=== PATIENT | male | born 1935 | race Caucasian/White ===

== ENCOUNTER 2020-08-19 12:45 | Inpatient (IN) ==
[2020-08-19] MEDS ORDERED: 0.9 % SODIUM CHLORIDE 1,000 ML IV ONE (12:55)
--- NOTE | 2020-08-19 12:59 | Emergency Department Note ---
HPI General Chief complaint: Blood Pressure Problem Stated complaint: low blood pressure Time Seen by Provider: 08/19/20 12:48 Source: patient Mode of arrival: wheelchair History of Present Illness HPI Narrative: 84-year-old male with recent diagnosis of right rib fractures presents with 10 days of cough, fever, and some lethargy. In addition, he is complaining of diaphoresis. His and daughter had a similar respiratory infection around the same time, but their symptoms have resolved. He was sent over from [facility] with reported blood pressure of 80/38 mmHg. He also carries a history of CHF. He is on carvedilol, spironolactone, and Lasix. He denies rapid weight gain. He had been sitting in chair for last 6 weeks for his rib fracture pain, he denies PND orthopnea. He does have chronic lower extremity edema, but he states this is about his baseline. He denies lightheadedness or dizziness. He does endorse shortness of breath. He finished his second Covid vaccine in June. Related Data Home Medications Medication Instructions Recorded Confirmed carvedilol 12.5 mg tablet 12.5 mg PO BID 07/15/20 08/19/20 losartan 100 mg tablet 100 mg PO QDAY 07/15/20 08/19/20 spironolactone 25 mg tablet 25 mg PO QDAY 07/15/20 08/19/20 acetaminophen 650 mg 650 mg PO QHS tab 07/19/20 08/19/20 tablet,extended release furosemide 20 mg tablet 20 mg PO QDAY 07/19/20 08/19/20 Previous Rx's Medication Instructions Recorded methocarbamol 750 mg PO Q8H #30 tab 07/15/20 tramadol 50 mg PO Q8H PRN #20 tab 07/15/20 Allergies Allergy/AdvReac Type Severity Reaction Status Date / Time No Known Drug Allergies Allergy Verified 08/19/20 12:35 Review of Systems ROS ROS Narrative: Narrative: All systems ED: reviewed and negative except as stated. [facility] Narrative Patient History Narrative: Narrative: Medical/Surgical/Family History All Active Problems (Updated 08/20/20 @ 07:47 by Priyanka Bojorquez PA-C) CAP (community acquired pneumonia) (Acute) Cough (Acute) History of CHF (congestive heart failure) (Acute) Hypertension (Acute) Multiple rib fractures (Acute) Fall (Acute) History of hypertension (Acute) Medical History Cough Fall History of hypertension Hypertension Surgical History History of back surgery History of hip surgery Rt. Family History Sister Ovarian cancer Mother High blood pressure Social History Smoking Status: Former smoker Alcohol Intake Frequency: 2+ drinks per day Substance Use: does not use Exam Narrative Narrative: General: AOx3, NAD, nontoxic appearing. Pleasant and conversant. HEENT: PERRLA, EOMI, normocephalic. Moist mucous membranes. Normal facies and normal dentition. Chest: Symmetric pain to palpation of the right rib cage Respiratory: Diminished breath sounds in the bilateral upper lobes, no respiratory distress. Unlabored breathing. Heart: Regular rate and rhythm, no murmurs/clicks/rubs. Abdomen: Non-tender, Non distended, normal bowel tones. No organomegaly. Extremities: Warm and well perfused. 1+ pitting edema bilaterally. No venous stasis. Neuro: No focal deficits. Cranial nerves II-XII normal. Skin: Diaphoretic, no rashes or lesions, no cyanosis. Psych: Normal mood and affect Heme/Lymph: No bruising Course Course Course Narrative: 84-year-old male is seen for cough, fever and confusion/lethargy. He was sent over from [facility] for evaluation. Reevaluation(s) Reevaluation #1: Chest x-ray, basic labs, lactate, blood cultures, UA Start IV fluids. Patient currently does not meet SIRS criteria with a normal blood pressure and normal heart rate. Also with normal respiratory rate, not hypoxic and afebrile Reevaluation #2: Chest x-ray shows right upper lobe pulmonary infiltrate consistent with pneumonia versus possible lung contusion. CBC with leukocytosis of 13,200. At this time we will treat him for community acquired pneumonia with IV ceftriaxone and azithromycin. Covid test pending. Lactic acid and BNP are pending. Anticipate admission for IV antibiotics. Reevaluation #3: Rapid Covid screen is negative BNP is mildly elevated Lactic acid is 1.7 Vital Signs Vital signs: Vital Signs Temperature 97.8 F 08/19/20 12:46 Pulse Rate 66 08/19/20 12:46 Respiratory Rate 16 08/19/20 12:46 Blood Pressure 113/51 08/19/20 12:46 Pulse Oximetry (%) 93 08/19/20 12:46 Temperature 98.6 F 08/20/20 07:44 Pulse Rate 67 08/20/20 07:44 Respiratory Rate 18 08/20/20 07:44 Blood Pressure 130/72 08/20/20 07:44 Pulse Oximetry (%) 94 08/20/20 07:44 MDM MDM Narrative Medical decision making narrative: Community acquired PNA PSI score is estimated as Class IV (minus the PaO2), which is indication for admission. I have signed this patient out to the hospitalist, Dr. Irving. Lab Data Result diagrams: 08/20/20 04:40 08/20/20 04:40 Labs: Lab Results 08/19/20 08/19/20 08/19/20 Range/Units 13:10 13:10 13:10 WBC 13.2 H (4.5-11.0) K/mcL RBC 3.24 L (4.50-5.90) M/mcL Hgb 10.5 L (13.5-16.5) g/dL Hct 31.5 L (41.0-55.0) % MCV 97.2 (80.0-100.0) fL MCH 32.4 (26.0-34.0) pg MCHC 33.3 (31.0-36.0) g/dL RDW 12.1 (11.5-14.5) % Plt Count 457 H (140-440) K/mcL MPV 9.1 (7.4-10.4) fL Seg Neutrophils % 81 H (38-78) % Lymphocytes % 10 L (15-49) % Monocytes % (Manual) 7 (1-12) % Eosinophils % (Manual) 2 (0-7) % Platelet Estimate Increased A (Normal) RBC Morphology Normal (Normal) VBG Lactic Acid 1.6 (0.5-2.0) mmol/L Sodium 135 (133-145) mmol/L Potassium 4.1 (3.3-5.1) mmol/L Chloride 102 (96-108) mmol/L Carbon Dioxide 22 (22-30) mmol/L Anion Gap 11.0 (8.0-16.0) BUN 24 H (8-23) mg/dL Creatinine 1.4 H (0.7-1.2) mg/dL GFR Calculation 46 Glucose 151 H (70-105) mg/dL Calcium 8.8 (8.6-10.4) mg/dL Total Bilirubin 0.5 (0.1-1.0) mg/dL AST 22 (<40) U/L ALT 31 (<40) U/L Alkaline Phosphatase 114 (39-117) U/L C-Reactive Protein (0.03-0.80) mg/dL NT-Pro-B Natriuret Pep 1176.0 H (<450.0) pg/mL Total Protein 6.8 (5.9-8.4) gm/dL Albumin 3.1 L (3.2-5.2) gm/dL Globulin 3.7 (2.2-3.7) gm/dL Albumin/Globulin Ratio 0.8 L (1.0-2.3) Procalcitonin (<0.10) ng/mL Urine Color Urine Appearance (Clear) Urine pH (5.0-9.0) Ur Specific [place] (1.000-1.035) Urine Protein (Negative) mg/dL Urine Glucose (UA) (Negative) mg/dL Urine Ketones (Negative) mg/dL Urine Occult Blood (Negative) mg/dL Urine Nitrate (Negative) Urine Bilirubin (Negative) mg/dL Urine Urobilinogen mg/dL Ur Leukocyte Esterase (Negative) /ug Urine RBC (0-3) /hpf Urine WBC (0-4) /hpf Ur Squamous Epith Cells (0-4) /hpf Urine Bacteria (0) /hpf Ur Culture Indicated? Ur Strep pneumoniae Ag (Negative) 08/19/20 08/19/20 08/19/20 Range/Units 13:10 13:10 16:40 WBC (4.5-11.0) K/mcL RBC (4.50-5.90) M/mcL Hgb (13.5-16.5) g/dL Hct (41.0-55.0) % MCV (80.0-100.0) fL MCH (26.0-34.0) pg MCHC (31.0-36.0) g/dL RDW (11.5-14.5) % Plt Count (140-440) K/mcL MPV (7.4-10.4) fL Seg Neutrophils % (38-78) % Lymphocytes % (15-49) % Monocytes % (Manual) (1-12) % Eosinophils % (Manual) (0-7) % Platelet Estimate (Normal) RBC Morphology (Normal) VBG Lactic Acid (0.5-2.0) mmol/L Sodium (133-145) mmol/L Potassium (3.3-5.1) mmol/L Chloride (96-108) mmol/L Carbon Dioxide (22-30) mmol/L Anion Gap (8.0-16.0) BUN (8-23) mg/dL Creatinine (0.7-1.2) mg/dL GFR Calculation Glucose (70-105) mg/dL Calcium (8.6-10.4) mg/dL Total Bilirubin (0.1-1.0) mg/dL AST (<40) U/L ALT (<40) U/L Alkaline Phosphatase (39-117) U/L C-Reactive Protein 18.30 H (0.03-0.80) mg/dL NT-Pro-B Natriuret Pep (<450.0) pg/mL Total Protein (5.9-8.4) gm/dL Albumin (3.2-5.2) gm/dL Globulin (2.2-3.7) gm/dL Albumin/Globulin Ratio (1.0-2.3) Procalcitonin 0.32 H (<0.10) ng/mL Urine Color Yellow Urine Appearance Clear (Clear) Urine pH 5.0 (5.0-9.0) Ur Specific [place] 1.010 (1.000-1.035) Urine Protein Negative (Negative) mg/dL Urine Glucose (UA) Negative (Negative) mg/dL Urine Ketones Negative (Negative) mg/dL Urine Occult Blood Negative (Negative) mg/dL Urine Nitrate Negative (Negative) Urine Bilirubin Negative (Negative) mg/dL Urine Urobilinogen 4.0 A mg/dL Ur Leukocyte Esterase Negative (Negative) /ug Urine RBC 1 (0-3) /hpf Urine WBC < 1 (0-4) /hpf Ur Squamous Epith Cells < 1 (0-4) /hpf Urine Bacteria None (0) /hpf Ur Culture Indicated? No Ur Strep pneumoniae Ag (Negative) 08/19/20 Range/Units 16:40 WBC (4.5-11.0) K/mcL RBC (4.50-5.90) M/mcL Hgb (13.5-16.5) g/dL Hct (41.0-55.0) % MCV (80.0-100.0) fL MCH (26.0-34.0) pg MCHC (31.0-36.0) g/dL RDW (11.5-14.5) % Plt Count (140-440) K/mcL MPV (7.4-10.4) fL Seg Neutrophils % (38-78) % Lymphocytes % (15-49) % Monocytes % (Manual) (1-12) % Eosinophils % (Manual) (0-7) % Platelet Estimate (Normal) RBC Morphology (Normal) VBG Lactic Acid (0.5-2.0) mmol/L Sodium (133-145) mmol/L Potassium (3.3-5.1) mmol/L Chloride (96-108) mmol/L Carbon Dioxide (22-30) mmol/L Anion Gap (8.0-16.0) BUN (8-23) mg/dL Creatinine (0.7-1.2) mg/dL GFR Calculation Glucose (70-105) mg/dL Calcium (8.6-10.4) mg/dL Total Bilirubin (0.1-1.0) mg/dL AST (<40) U/L ALT (<40) U/L Alkaline Phosphatase (39-117) U/L C-Reactive Protein (0.03-0.80) mg/dL NT-Pro-B Natriuret Pep (<450.0) pg/mL Total Protein (5.9-8.4) gm/dL Albumin (3.2-5.2) gm/dL Globulin (2.2-3.7) gm/dL Albumin/Globulin Ratio (1.0-2.3) Procalcitonin (<0.10) ng/mL Urine Color Urine Appearance (Clear) Urine pH (5.0-9.0) Ur Specific [place] (1.000-1.035) Urine Protein (Negative) mg/dL Urine Glucose (UA) (Negative) mg/dL Urine Ketones (Negative) mg/dL Urine Occult Blood (Negative) mg/dL Urine Nitrate (Negative) Urine Bilirubin (Negative) mg/dL Urine Urobilinogen mg/dL Ur Leukocyte Esterase (Negative) /ug Urine RBC (0-3) /hpf Urine WBC (0-4) /hpf Ur Squamous Epith Cells (0-4) /hpf Urine Bacteria (0) /hpf Ur Culture Indicated? Ur Strep pneumoniae Ag Negative (Negative) ED POC Tests ED POC Tests: [place] - SARS Antigen Negative Discharge Plan Patient/Caregiver Discharge Instructions Pt seen by [facility] APPLICATOR/PA only: Yes Clinical Impression: CAP (community acquired pneumonia) Patient Disposition: Xfer As Inpt ([facility]) Discharge Date/Time: 08/19/20 16:45
--- NOTE | 2020-08-19 13:21 | XRay Report ---
INDICATION: sepsis TECHNIQUE: AP portable semierect chest x-ray COMPARISON: Previous examination dated 07/15/2020 FINDINGS: Lungs:Patient has a history of COPD. There is focal right upper lobe infiltrate consistent with pneumonia. There is a fracture of the right 8th rib and pulmonary contusion is possible. This is a new finding since 07/15/2020. Left lung is negative. Heart, vascular:No significant cardiomegaly. Pulmonary vascularity is normal. No pulmonary edema or pulmonary congestion Mediastinum, yadiel:No mediastinal widening. No hilar mass Pleura:No detectable hemothorax or pneumothorax Skeletal:Fracture of the right 8th rib posterolaterally. This is new since 07/15/2020. No other detectable rib fractures. IMPRESSION: 1. Right 8th rib fracture 2. Focal consolidation the right upper lobe consistent with pneumonia. Pulmonary contusion is possible Interpreted and Authenticated by: Jeanmarie Du 08/19/20
[2020-08-19] MEDS ORDERED: cefTRIAXone 1 GM VIAL IV ONE (13:33)
[2020-08-19] MEDS ORDERED: AZITHROMYCIN 500 MG in DEXTROSE 5% IN WATER 250 ML IV ONE (13:33)
[2020-08-19 13:56] LABS: Hematocrit 31.5 % (41.0-55.0); Hemoglobin 10.5 g/dL (13.5-16.5); Mean Cell Volume 97.2 fL (80.0-100.0); Mean Corpuscular HGB Conc 33.3 g/dL (31.0-36.0); Mean Platelet Volume 9.1 fL (7.4-10.4); Platelet Count 457 K/mcL (140-440); RBC 3.24 M/mcL (4.50-5.90); Red Cell Distribution Width 12.1 % (11.5-14.5); WBC 13.2 K/mcL (4.5-11.0)
[2020-08-19 14:20] LABS: ALT/SGPT 31 U/L (<40); AST/SGOT 22 U/L (<40); Albumin 3.1 gm/dL (3.2-5.2); Albumin/Globulin Ratio 0.8 (1.0-2.3); Alkaline Phosphatase 114 U/L (39-117); Bilirubin,Total 0.5 mg/dL (0.1-1.0); Blood Urea Nitrogen 24 mg/dL (8-23); Calcium 8.8 mg/dL (8.6-10.4); Carbon Dioxide 22 mmol/L (22-30); Chloride 102 mmol/L (96-108); Globulin 3.7 gm/dL (2.2-3.7); Glomerular Filtration Rate 46; Glucose 151 mg/dL (70-105)
[2020-08-19 14:48] LABS: Eosinophils % (Manual) 2 % (0-7); Lymphocytes % 10 % (15-49); Monocytes % (Manual) 7 % (1-12); Platelet Estimate INCREASED (Normal); RBC Morphology NORMAL (Normal); Segmented Neutrophils % 81 % (38-78)
--- NOTE | 2020-08-19 15:52 | Internal Med History&Physical ---
HPI History of Present Illness Patient information: Note initiated : 08/19/20 at 3:46 pm Service Date, if different from initiated Date: [] Patient: Osmany Tong 84 y/o M admitted on for Low Blood Pressure. Chief Complaint: [] History of present illness: Mr. Tong is a 84 year old M Presented to minor care because he did not look well per his and was diaphoretic and in the minor care is found to have a blood pressure of systolic 80/38. Patient was sent over to ED. After IV fluids given minor care patient's blood pressures been good in our ER. He had a mild leukocytosis. BUN/creatinine mildly elevated. Chest x-ray with right upper lobe infiltrate. Reports cough productive of yellow sputum. He has been weak and fatigued. He has increased shortness of breath this all been going on for about the past week and a half. He has had some diarrhea none today. He has had chills. When he is well he has few drinks at night but has not had any alcohol for 2 weeks. Review of Systems: Pertinent positives as above. Denies headache//nausea/vomiting/chest or abdominal pain/. Remaining 10 point review of system reviewed negative PFSH PFSH All Active Problems (Updated 08/19/20 @ 12:47 by Asha Tompkins DO) Cough (Acute) History of CHF (congestive heart failure) (Acute) Hypertension (Acute) Multiple rib fractures (Acute) Fall (Acute) History of hypertension (Acute) Medical History (Updated 08/19/20 @ 12:47 by Asha Tompkins DO) Cough Fall History of hypertension Hypertension Surgical History History of back surgery History of hip surgery Rt. Family History Sister Ovarian cancer Mother High blood pressure Social History marital status: occupational status: retired smoking status: Former smoker alcohol intake frequency: 2+ drinks per day substance use type: does not use MEDS/ALLERGIES Home Medications and Allergies Home Medications Medication Instructions Recorded Confirmed Type carvedilol 12.5 mg tablet 12.5 mg PO BID 07/15/20 08/19/20 History losartan 100 mg tablet 100 mg PO QDAY 07/15/20 08/19/20 History methocarbamol 750 mg PO Q8H #30 tab 07/15/20 08/19/20 Rx spironolactone 25 mg tablet 25 mg PO QDAY 07/15/20 08/19/20 History tramadol 50 mg PO Q8H PRN #20 tab 07/15/20 08/19/20 Rx acetaminophen 650 mg 650 mg PO QHS tab 07/19/20 08/19/20 History tablet,extended release furosemide 20 mg tablet 20 mg PO QDAY 07/19/20 08/19/20 History Allergies Allergy/AdvReac Type Severity Reaction Status Date / Time No Known Drug Allergies Allergy Verified 08/19/20 12:35 EXAM Constitutional Vitals: Temp Pulse Resp BP Pulse Ox 97.8 F 59 L 16 107/59 95 08/19/20 12:46 08/19/20 15:01 08/19/20 12:46 08/19/20 15:01 08/19/20 15:01 Exam: General: Awake but appears quite fatigued, No acute Distress Eyes/N/T: EOMI, PERRL, dry MM Head/Neck: neck supple, normocephalic atraumatic CV: RRR, No murmurs, normal s1/s2 Pulm: Right upper lobe mild wheezing and bronchial breath sounds, left clear. No rales abd: soft, nontender, +BS x4 Ext: no clubbing/cyanosis, b/l LE 1+ edema chronic usually worse per pt Neuro: Alert, no focal deficits, moves all extremities, CN 2-12 grossly intact, symmetrical strength b/l upper/lower, sensations intact b/l upper/lower Skin: warm/dry DATA Data Completed and Pending Labs: Labs from last 24 hours 08/19/20 08/19/20 08/19/20 13:10 13:10 13:10 WBC RBC Hgb Hct MCV MCH MCHC RDW Plt Count MPV Seg Neutrophils % Lymphocytes % Monocytes % (Manual) Eosinophils % (Manual) Platelet Estimate RBC Morphology VBG Lactic Acid 1.6 Sodium Potassium Chloride Carbon Dioxide Anion Gap BUN Creatinine GFR Calculation Glucose Calcium Total Bilirubin AST ALT Alkaline Phosphatase C-Reactive Protein Pending NT-Pro-B Natriuret Pep Total Protein Albumin Globulin Albumin/Globulin Ratio Procalcitonin Pending 08/19/20 08/19/20 13:10 13:10 WBC 13.2 H RBC 3.24 L Hgb 10.5 L Hct 31.5 L MCV 97.2 MCH 32.4 MCHC 33.3 RDW 12.1 Plt Count 457 H MPV 9.1 Seg Neutrophils % 81 H Lymphocytes % 10 L Monocytes % (Manual) 7 Eosinophils % (Manual) 2 Platelet Estimate Increased A RBC Morphology Normal VBG Lactic Acid Sodium 135 Potassium 4.1 Chloride 102 Carbon Dioxide 22 Anion Gap 11.0 BUN 24 H Creatinine 1.4 H GFR Calculation 46 Glucose 151 H Calcium 8.8 Total Bilirubin 0.5 AST 22 ALT 31 Alkaline Phosphatase 114 C-Reactive Protein NT-Pro-B Natriuret Pep 1176.0 H Total Protein 6.8 Albumin 3.1 L Globulin 3.7 Albumin/Globulin Ratio 0.8 L Procalcitonin A/P Narrative A/P Narrative: A: *CAP: -PSI= 114 *Sepsis: 2/2 above -Hypotension resolved with IV fluids in ED *JOAN on CKD III: 2/2 volume depletion *Anemia, likely chronic: *HTN: On Coreg losartan Lasix and Aldactone *h/o fall with rib fracture 6 weeks ago: On tramadol *Generalized weakness/deconditionin/2 above * * P: -Rocephin/azithromycin, pending BC/UC -IS/Acapella, prn nebs -IVF -hold BB/ARB/Diuretics - -FARHAT's -PT/OT -ppx: Lovenox DNR Time Spent With Patient Time: Total time spent is greater than 50% in coordination of care (as documented) at patient's floor/unit and/or counseling patient:
[2020-08-19] MEDS ORDERED: POTASSIUM CHLORIDE 40 MEQ in DEXTROSE 5% IN WATER 500 ML IV PRN (16:57)
[2020-08-19] MEDS ORDERED: IPRATROPIUM/ALBUTEROL 3 ML AMPUL.NEB NEB PRN (16:57)
[2020-08-19] MEDS ORDERED: 0.9 % SODIUM CHLORIDE 500 ML IV ONE (16:57)
[2020-08-19] MEDS ORDERED: ONDANSETRON 4 MG/2 ML VIAL IV PRN (16:57)
[2020-08-19] MEDS ORDERED: MAGNESIUM SULFATE 2 GM/50 ML BAG IV PRN (16:57)
[2020-08-19] MEDS ORDERED: HYDROcodone/APAP 5/325MG TABLET PO PRN (16:57)
[2020-08-19] MEDS ORDERED: SENNOSIDES 1 TABLET PO PRN (16:57)
[2020-08-19] MEDS ORDERED: POLYETHYLENE GLYCOL 3350 17 GM PACKET PO PRN (16:57)
[2020-08-19] MEDS ORDERED: POTASSIUM CHLORIDE 20 MEQ TABLET PO PRN ×2 (16:57)
[2020-08-19 18:17] LABS: Appearance,Urine CLEAR (Clear); Bilirubin,Urine Negative (Negative); Color,Urine YELLOW; Culture Indicated,Urine No; Glucose,Urine (UA) Negative (Negative); Ketones,Urine Negative (Negative); Leukocyte Esterase,Urine Negative /ug (Negative); Nitrate,Urine Negative (Negative); Protein,Urine Negative (Negative); Urine Blood Negative (Negative); Urine RBC 1 /hpf (0-3); Urine Squamous Epithelial Cell < 1 /hpf (0-4); Urine WBC < 1 /hpf (0-4)
[2020-08-19] MEDS: DOCUSATE SODIUM 100 MG CAPSULE PO SCH (22:02)
[2020-08-19] MEDS: 0.9 % SODIUM CHLORIDE 10 ML SYRINGE IV SCH (22:03)
[2020-08-20] MEDS: ACETAMINOPHEN 325 MG TABLET PO PRN ×3 (00:02→20:21)
[2020-08-20] MEDS: 0.9 % SODIUM CHLORIDE 10 ML SYRINGE IV SCH ×3 (05:19→22:00)
[2020-08-20 06:47] LABS: Basophils # (Auto) 0.06 K/mcL (0.00-0.20); Basophils % (Auto) 0.5 % (0.0-2.0); Eosinophils # (Auto) 0.62 K/mcL (0.00-0.70); Eosinophils % (Auto) 5.6 % (0.0-7.0); Hematocrit 30.4 % (41.0-55.0); Hemoglobin 9.9 g/dL (13.5-16.5); Lymphocytes # (Auto) 1.05 K/mcL (1.50-4.80); Lymphocytes % (Auto) 9.5 % (15.0-49.0); Mean Cell Volume 98.4 fL (80.0-100.0); Mean Corpuscular HGB Conc 32.6 g/dL (31.0-36.0); Mean Platelet Volume 9.3 fL (7.4-10.4); Monocytes # (Auto) 0.92 K/mcL (0.10-0.90); Monocytes % (Auto) 8.3 % (1.0-12.0); Neutrophils % (Auto) 76.1 % (38.0-78.0); Platelet Count 440 K/mcL (140-440); RBC 3.09 M/mcL (4.50-5.90); Red Cell Distribution Width 12.3 % (11.5-14.5)
[2020-08-20 07:17] LABS: ALT/SGPT 24 U/L (<40); AST/SGOT 17 U/L (<40); Albumin 2.9 gm/dL (3.2-5.2); Albumin/Globulin Ratio 0.9 (1.0-2.3); Alkaline Phosphatase 94 U/L (39-117); Bilirubin,Direct 0.2 mg/dL (<0.3); Bilirubin,Total 0.4 mg/dL (0.1-1.0); Blood Urea Nitrogen 19 mg/dL (8-23); Calcium 8.3 mg/dL (8.6-10.4); Carbon Dioxide 23 mmol/L (22-30); Chloride 104 mmol/L (96-108); Globulin 3.2 gm/dL (2.2-3.7); Glomerular Filtration Rate 68; Glucose 98 mg/dL (70-105); Lactate Dehydrogenase 166 U/L (135-225); Phosphorous 3.1 mg/dL (2.5-4.5); Triglycerides 103 mg/dL (<150); Uric Acid 4.2 mg/dL (2.5-8.0)
--- NOTE | 2020-08-20 07:44 | Internal Med Progress Note ---
SUBJECTIVE Subjective Patient information: Note initiated : 08/20/20 at 7:41 am Service Date, if different from initiated Date: [] Patient: Osmany Tong 84 y/o M admitted on 08/19/20 for Low Blood Pressure. Chief Complaint: [] Interval history: History of present illness: Mr. Tong is a 84 year old M Presented to minor care because he did not look well per his and was diaphoretic and in the minor care is found to have a blood pressure of systolic 80/38. Patient was sent over to ED. After IV fluids given minor care patient's blood pressures been good in our ER. He had a mild leukocytosis. BUN/creatinine mildly elevated. Chest x-ray with right upper lobe infiltrate. Reports cough productive of yellow sputum. He has been weak and fatigued. He has increased shortness of breath this all been going on for about the past week and a half. He has had some diarrhea none today. He has had chills. When he is well he has few drinks at night but has not had any alcohol for 2 weeks. 08/20 Patient slept okay. No overnight event or new complaints. Has occasional cough. Review of Systems: denies headache/fever/chills/nausea/vomiting/chest or abdominal pain/diarrhea. Otherwise see above. Constitutional Vitals: Vital Signs Temp Pulse Resp BP Pulse Ox 98.3 F 69 18 125/72 92 08/20/20 04:00 08/20/20 04:00 08/20/20 04:00 08/20/20 04:00 08/20/20 04:00 Period Temp Pulse Resp BP Sys/Marroquin Pulse Ox Last 24 Hr 96.8 F-98.3 F 56-71 16-24 98-139/51-73 91-96 Intake and Output 08/19/20 08/20/20 08/20/20 21:59 05:59 13:59 Intake Total 1250 540 Output Total 650 Balance 1250 -110 Weight 100.471 kg Intake & Output: Intake & Output 08/19/20 08/20/20 08/20/20 21:59 05:59 13:59 Intake Total 1250 540 Output Total 650 Balance 1250 -110 Weight 100.471 kg Intake: IV 1250 Sodium Chloride 0.9% 1,000 ml @ 1000 Wide Open IV BOLUS ONE Rx#: [id number] Zithromax 500 mg In Dextrose 5% 250 in Water 250 ml @ 250 mls/hr IV ONCE ONE Rx#:[id number] Oral 540 Output: Void Amount 650 Other: Meal Dinner Percent of Meal Consumed 90 Feeding Ability Independent Urine Appearance Clear Cloudy Urine Color Dark Yellow Dark Yellow Stool Size Small Stool Color Brown Stool Consistency Formed # Voids 1 # Bowel Movements 1 Exam: General: Awake but appears quite fatigued, No acute Distress Eyes/N/T: EOMI, Head/Neck: neck supple, CV: RRR, No murmurs, Pulm: clearing, no wheezing today. left clear. No rales abd: soft, nontender, +BS x4 Ext: no clubbing/cyanosis, b/l LE 1+ edema chronic usually worse per pt Neuro: Alert, no focal deficits, moves all extremities, Skin: warm/dry OBJ DATA Labs CBC & Chem 7: 08/20/20 04:40 08/20/20 04:40 Labs: Abnormal Lab Results 08/20/20 08/20/20 08/19/20 04:40 04:40 16:40 WBC RBC 3.09 L Hgb 9.9 L Hct 30.4 L Plt Count Lymph % (Auto) 9.5 L Lymph # (Auto) 1.05 L [place] # (Auto) 0.92 H Seg Neutrophils % Lymphocytes % Absolute Neutrophils 8.39 H Platelet Estimate BUN Creatinine Glucose Calcium 8.3 L GGT 67 H C-Reactive Protein NT-Pro-B Natriuret Pep Albumin 2.9 L Albumin/Globulin Ratio 0.9 L Procalcitonin Urine Urobilinogen 4.0 A 08/19/20 08/19/20 08/19/20 13:10 13:10 13:10 WBC RBC Hgb Hct Plt Count Lymph % (Auto) Lymph # (Auto) [place] # (Auto) Seg Neutrophils % Lymphocytes % Absolute Neutrophils Platelet Estimate BUN 24 H Creatinine 1.4 H Glucose 151 H Calcium GGT C-Reactive Protein 18.30 H NT-Pro-B Natriuret Pep 1176.0 H Albumin 3.1 L Albumin/Globulin Ratio 0.8 L Procalcitonin 0.32 H Urine Urobilinogen 08/19/20 13:10 WBC 13.2 H RBC 3.24 L Hgb 10.5 L Hct 31.5 L Plt Count 457 H Lymph % (Auto) Lymph # (Auto) [place] # (Auto) Seg Neutrophils % 81 H Lymphocytes % 10 L Absolute Neutrophils Platelet Estimate Increased A BUN Creatinine Glucose Calcium GGT C-Reactive Protein NT-Pro-B Natriuret Pep Albumin Albumin/Globulin Ratio Procalcitonin Urine Urobilinogen Meds: Medications Acetaminophen (Acetaminophen 325 Mg Tablet) 650 mg PO Q6HP PRN PRN Reason: PAIN/FEVER > 101 Last Admin: 08/20/20 00:02 Dose: 650 mg Documented by: Hydrocodone Bitart/Acetaminophen (Hydrocodone/Apap 5/325mg Tablet) 1 tab PO Q4HP PRN PRN Reason: PAIN LEVEL 3-6 Albuterol/Ipratropium (Ipratropium/Albuterol 3 Ml Ampul.Neb) 3 ml NEB Q4HP PRN PRN Reason: Shortness Of Breath Docusate Sodium (Docusate Sodium 100 Mg Capsule) 100 mg PO BID [facility] Last Admin: 08/19/20 22:02 Dose: 100 mg Documented by: Enoxaparin Sodium (Enoxaparin 40 Mg/0.4 Ml Syringe) 40 mg SQ DAILY [facility] Ceftriaxone Sodium 2 gm/ (Dextrose) 50 mls @ 100 mls/hr IV Q24H [facility]; Protocol Azithromycin 500 mg/ Dextrose 250 mls @ 250 mls/hr IV Q24H [facility]; Protocol Stop: 08/22/20 10:59 Potassium Chloride 40 meq/ (Dextrose) 520 mls @ 130 mls/hr IV UD PRN PRN Reason: Potassium < 3 Magnesium Sulfate (Magnesium Sulfate) 2 gm in 50 mls @ 50 mls/hr IV UD PRN PRN Reason: Magnesium </= 1.6 Ondansetron HCl (Ondansetron 4 Mg/2 Ml Vial) 4 mg IV Q4HP PRN PRN Reason: Nausea And Vomiting Polyethylene Glycol (Polyethylene Glycol 3350 17 Gm Packet) 17 gm PO DAILYP PRN PRN Reason: Constipation Potassium Chloride (Potassium Chloride 20 Meq Tablet) 40 meq PO UD PRN PRN Reason: Potssium is 3-3.5 Potassium Chloride (Potassium Chloride 20 Meq Tablet) 40 meq PO UD PRN PRN Reason: Potassium < 3 Senna (Sennosides 1 Tablet) 2 tab PO DAILYP PRN PRN Reason: Constipation Sodium Chloride (0.9 % Sodium Chloride 10 Ml Syringe) 10 ml IV Q8 [facility] Last Admin: 08/20/20 05:19 Dose: Not Given Documented by: A/P Narrative A/P Narrative: A: *CAP(RUL): -PSI= 114 *Sepsis: 2/2 above -Hypotension resolved with IV fluids in ED -leukocytosis resolved *JOAN on CKD III: 2/2 volume depletion -resolved *Anemia, likely chronic: resolved *HTN: On Coreg losartan Lasix and Aldactone *h/o fall with rib fracture 6 weeks ago: On tramadol *Generalized weakness/deconditionin/2 above * P: -Rocephin/azithromycin, pending BC/UC -IS/Acapella, prn nebs -hold BB/ARB/Diuretics - -FARHAT's -PT/OT -ppx: Lovenox DNR Time Spent With Patient Time: Total time spent is greater than 50% in coordination of care (as documented) at patient's floor/unit and/or counseling patient: QUALITY VTE Deep Vein Thrombosis/Pulmonary Embolism Present on Admission: No
[2020-08-20] MEDS: cefTRIAXone 2 GM in DEXTROSE 5% IN WATER 50 ML IV SCH (08:32)
[2020-08-20] MEDS: ENOXAPARIN 40 MG/0.4 ML SYRINGE SQ SCH (08:49)
[2020-08-20] MEDS: DOCUSATE SODIUM 100 MG CAPSULE PO SCH ×2 (08:49→20:22)
[2020-08-20] MEDS: AZITHROMYCIN 500 MG in DEXTROSE 5% IN WATER 250 ML IV SCH (09:15)
--- NOTE | 2020-08-20 09:19 | Discharge Summary ---
Discharge Provider Provider Patient information: Note initiated : 08/20/20 at 9:18 am Service Date, if different from initiated Date: [] Patient: Osmany Tong 84 y/o M admitted on 08/19/20 for Low Blood Pressure. Chief Complaint: [] Date of admission: 08/19/20 16:45 Discharge date: 08/21/20 Primary care physician: Maura Infante DO Consults: 08/19/20 Consult to Physician [CONS] Stat Comment: Consulting Provider: Efrain Irving Reason For Exam: Physician to Consult Discharge Meds Discharge Medications Home Medications losartan 100 mg tablet 100 mg PO QDAY 07/15/20 [History Confirmed 08/19/20 Last Taken 08/19/20 09:00 100 MG.] methocarbamol 750 mg PO Q8H #30 tab 07/15/20 [Rx Confirmed 08/19/20 Last Taken 08/19/20 11:00 750 MG.] tramadol 50 mg PO Q8H PRN #20 tab 07/15/20 [Rx Confirmed 08/19/20 Last Taken 08/19/20 11:00 50 MG.] acetaminophen 650 mg tablet,extended release 650 mg PO QHS tab 07/19/20 [History Confirmed 08/19/20 Last Taken 08/19/20 11:00 650 MG.] furosemide 20 mg tablet 20 mg PO QDAY 07/19/20 [History Confirmed 08/19/20 Last Taken 08/19/20 09:00 20 MG.] amoxicillin 875 mg PO Q12H #6 tab 08/20/20 [Rx Last Taken Unknown] carvedilol 6.25 mg PO BID #1 tab 08/20/20 [Rx Last Taken Unknown] COURSE Hospital Course Hospital course: Interval history: History of present illness: Mr. Tong is a 84 year old M Presented to minor care because he did not look well per his and was diaphoretic and in the minor care is found to have a blood pressure of systolic 80/38. Patient was sent over to ED. After IV fluids given minor care patient's blood pressures been good in our ER. He had a mild leukocytosis. BUN/creatinine mildly elevated. Chest x-ray with right upper lobe infiltrate. Reports cough productive of yellow sputum. He has been weak and fatigued. He has increased shortness of breath this all been going on for about the past week and a half. He has had some diarrhea none today. He has had chills. When he is well he has few drinks at night but has not had any alcohol for 2 weeks. 08/20 Patient slept okay. No overnight event or new complaints. Has occasional cough. 08/21 Doing well. No new complaints. *Decreased Coreg for low blood pressure, and stopped Aldactone, continue Lasix. *Patient asked to monitor blood pressure twice daily and bring log to PCP A: *CAP(RUL): *Sepsis: 2/2 above *JOAN on CKD III: 2/2 volume depletion *Anemia, likely chronic: resolved *HTN: On Coreg losartan Lasix and Aldactone *h/o fall with rib fracture 6 weeks ago: On tramadol *Generalized weakness/deconditionin/2 above * Discharge diagnosis: Pneumonia sepsis acute kidney injury Secondary discharge diagnosis: Chronic kidney injury anemia hypertension generalized weakness deconditioning Time Spent with Patient Time attestation: Total time spent providing and/or coordinating discharge services: Time spent: Greater than 30 minutes EXAM Constitutional Vitals: Temp Pulse Resp BP Pulse Ox 98.6 F 67 18 130/72 94 08/20/20 07:44 08/20/20 07:44 08/20/20 07:44 08/20/20 07:44 08/20/20 07:44 Discharge Data Data Completed and Pending Labs on day of discharge: Labs from last 24 hours 08/20/20 08/20/20 08/19/20 04:40 04:40 16:40 WBC 11.0 RBC 3.09 L Hgb 9.9 L Hct 30.4 L MCV 98.4 MCH 32.0 MCHC 32.6 RDW 12.3 Plt Count 440 MPV 9.3 Neut % (Auto) 76.1 Lymph % (Auto) 9.5 L [place] % (Auto) 8.3 Eos % (Auto) 5.6 Baso % (Auto) 0.5 Lymph # (Auto) 1.05 L [place] # (Auto) 0.92 H Eos # (Auto) 0.62 Baso # (Auto) 0.06 Seg Neutrophils % Lymphocytes % Monocytes % (Manual) Eosinophils % (Manual) Absolute Neutrophils 8.39 H Platelet Estimate RBC Morphology VBG Lactic Acid Sodium 138 Potassium 4.5 Chloride 104 Carbon Dioxide 23 Anion Gap 11.0 BUN 19 Creatinine 1.0 GFR Calculation 68 Glucose 98 Uric Acid 4.2 Calcium 8.3 L Phosphorus 3.1 Magnesium 2.3 Total Bilirubin 0.4 Direct Bilirubin 0.2 GGT 67 H AST 17 ALT 24 Alkaline Phosphatase 94 Lactate Dehydrogenase 166 C-Reactive Protein NT-Pro-B Natriuret Pep Total Protein 6.1 Albumin 2.9 L Globulin 3.2 Albumin/Globulin Ratio 0.9 L Triglycerides 103 Procalcitonin Urine Color Urine Appearance Urine pH Ur Specific [place] Urine Protein Urine Glucose (UA) Urine Ketones Urine Occult Blood Urine Nitrate Urine Bilirubin Urine Urobilinogen Ur Leukocyte Esterase Urine RBC Urine WBC Ur Squamous Epith Cells Urine Bacteria Ur Culture Indicated? Ur Strep pneumoniae Ag Negative 08/19/20 08/19/20 08/19/20 16:40 13:10 13:10 WBC RBC Hgb Hct MCV MCH MCHC RDW Plt Count MPV Neut % (Auto) Lymph % (Auto) [place] % (Auto) Eos % (Auto) Baso % (Auto) Lymph # (Auto) [place] # (Auto) Eos # (Auto) Baso # (Auto) Seg Neutrophils % Lymphocytes % Monocytes % (Manual) Eosinophils % (Manual) Absolute Neutrophils Platelet Estimate RBC Morphology VBG Lactic Acid Sodium Potassium Chloride Carbon Dioxide Anion Gap BUN Creatinine GFR Calculation Glucose Uric Acid Calcium Phosphorus Magnesium Total Bilirubin Direct Bilirubin GGT AST ALT Alkaline Phosphatase Lactate Dehydrogenase C-Reactive Protein 18.30 H NT-Pro-B Natriuret Pep Total Protein Albumin Globulin Albumin/Globulin Ratio Triglycerides Procalcitonin 0.32 H Urine Color Yellow Urine Appearance Clear Urine pH 5.0 Ur Specific [place] 1.010 Urine Protein Negative Urine Glucose (UA) Negative Urine Ketones Negative Urine Occult Blood Negative Urine Nitrate Negative Urine Bilirubin Negative Urine Urobilinogen 4.0 A Ur Leukocyte Esterase Negative Urine RBC 1 Urine WBC < 1 Ur Squamous Epith Cells < 1 Urine Bacteria None Ur Culture Indicated? No Ur Strep pneumoniae Ag 08/19/20 08/19/20 08/19/20 13:10 13:10 13:10 WBC 13.2 H RBC 3.24 L Hgb 10.5 L Hct 31.5 L MCV 97.2 MCH 32.4 MCHC 33.3 RDW 12.1 Plt Count 457 H MPV 9.1 Neut % (Auto) Lymph % (Auto) [place] % (Auto) Eos % (Auto) Baso % (Auto) Lymph # (Auto) [place] # (Auto) Eos # (Auto) Baso # (Auto) Seg Neutrophils % 81 H Lymphocytes % 10 L Monocytes % (Manual) 7 Eosinophils % (Manual) 2 Absolute Neutrophils Platelet Estimate Increased A RBC Morphology Normal VBG Lactic Acid 1.6 Sodium 135 Potassium 4.1 Chloride 102 Carbon Dioxide 22 Anion Gap 11.0 BUN 24 H Creatinine 1.4 H GFR Calculation 46 Glucose 151 H Uric Acid Calcium 8.8 Phosphorus Magnesium Total Bilirubin 0.5 Direct Bilirubin GGT AST 22 ALT 31 Alkaline Phosphatase 114 Lactate Dehydrogenase C-Reactive Protein NT-Pro-B Natriuret Pep 1176.0 H Total Protein 6.8 Albumin 3.1 L Globulin 3.7 Albumin/Globulin Ratio 0.8 L Triglycerides Procalcitonin Urine Color Urine Appearance Urine pH Ur Specific [place] Urine Protein Urine Glucose (UA) Urine Ketones Urine Occult Blood Urine Nitrate Urine Bilirubin Urine Urobilinogen Ur Leukocyte Esterase Urine RBC Urine WBC Ur Squamous Epith Cells Urine Bacteria Ur Culture Indicated? Ur Strep pneumoniae Ag Discharge Plan Patient/Caregiver Discharge Instructions Activity: increase activity as tolerated Diet: Regular Diet Activity Restrictions/Additional Instructions: Monitor blood pressure twice daily and bring log to PCP Prescriptions: New amoxicillin 875 mg tablet 875 mg PO Q12H Qty: 6 RF: 0 Continued furosemide 20 mg tablet 20 mg PO QDAY RF: 0 acetaminophen [Tylenol Arthritis Pain] 650 mg tablet extended release 650 mg PO QHS RF: 0 losartan 100 mg tablet 100 mg PO QDAY RF: 0 tramadol 50 mg tablet 50 mg PO Q8H PRN (Reason: pain) Qty: 20 RF: 0 methocarbamol 750 mg tablet 750 mg PO Q8H Qty: 30 RF: 0 Changed carvedilol 12.5 mg tablet 6.25 mg PO BID Qty: 1 RF: 0 Discontinued spironolactone 25 mg tablet 25 mg PO QDAY RF: 0 Follow Up Plan Follow up with: Maura Infante DO [Primary Care Provider] - Patient Disposition: Home, Self-Care Prognosis: Fair Overall status at discharge: patient is progressing back to baseline Discharge Orders: Discharge Order (Routine); Ordered 08/21/20 Ordered By: Efrain Irving [facility] Deep Vein Thrombosis/Pulmonary Embolism Present on Admission: No
[2020-08-21] MEDS: 0.9 % SODIUM CHLORIDE 10 ML SYRINGE IV SCH (06:24)
[2020-08-21] MEDS: DOCUSATE SODIUM 100 MG CAPSULE PO SCH (08:52)
[2020-08-21] MEDS: cefTRIAXone 2 GM in DEXTROSE 5% IN WATER 50 ML IV SCH (08:52)
[2020-08-21] MEDS: ENOXAPARIN 40 MG/0.4 ML SYRINGE SQ SCH (08:52)
[2020-08-21] MEDS: AZITHROMYCIN 500 MG in DEXTROSE 5% IN WATER 250 ML IV SCH (09:43)
== END 2020-08-21 12:00 | disposition home or self-care (01) | DRG 871 ==
LOC: ED 12:45 → MEDSUR 16:45
PROVIDERS: ADMIT Internal Medicine; ATTEND Internal Medicine

== ENCOUNTER 2024-11-27 10:17 | Inpatient (IN) ==
[2024-11-27] MEDS ORDERED: IOPAMIDOL 100 ML BOTTLE IV ONE (10:18)
[2024-11-27 11:32] LABS: Basophils # (Auto) 0.02 K/mcL (0.00-0.30); Basophils % (Auto) 0.2 % (0.0-2.0); Eosinophils # (Auto) 0.01 K/mcL (0.00-0.70); Eosinophils % (Auto) 0.1 % (0.0-7.0); Hematocrit 38.6 % (40.1-51.0); Hemoglobin 13.1 g/dL (13.7-17.5); Lymphocytes # (Auto) 0.70 K/mcL (1.50-4.80); Lymphocytes % (Auto) 7.5 % (15.5-49.0); Mean Corpuscular HGB Conc 33.9 g/dL (31.0-36.0); Monocytes # (Auto) 0.84 K/mcL (0.10-0.90); Monocytes % (Auto) 9.0 % (1.0-12.0); Neutrophils % (Auto) 82.8 % (38.0-78.0); Platelet Count 208 K/mcL (140-440); RBC 3.94 M/mcL (4.63-6.08); WBC 9.3 K/mcL (4.5-11.0)
[2024-11-27] MEDS: ONDANSETRON 4 MG/2 ML VIAL IV ONE (11:36)
[2024-11-27 11:54] LABS: ALT/SGPT 17 U/L (<40); AST/SGOT 17 U/L (<40); Albumin 3.7 gm/dL (3.2-5.2); Albumin/Globulin Ratio 1.2 (1.0-2.3); Alkaline Phosphatase 63 U/L (39-117); Anion Gap 14.0 (8.0-16.0); Bilirubin,Total 0.7 mg/dL (0.1-1.0); Blood Urea Nitrogen 18 mg/dL (8-23); Calcium 9.2 mg/dL (8.6-10.4); Carbon Dioxide 23 mmol/L (22-30); Chloride 101 mmol/L (96-108); Globulin 3.0 gm/dL (2.2-3.7); Glucose 147 mg/dL (70-105); Potassium 3.5 mmol/L (3.3-5.1); Sodium 138 mmol/L (133-145)
[2024-11-27] MEDS: ACETAMINOPHEN 1,000 MG/100 ML BAG IV ONE (12:52)
[2024-11-27] MEDS: AZITHROMYCIN 500 MG in DEXTROSE 5% IN WATER 250 ML IV ONE (13:20)
[2024-11-27] MEDS: cefTRIAXone 1 GM VIAL IV ONE (13:20)
[2024-11-27 14:22] LABS: Bilirubin,Urine Negative (Negative); Color,Urine Yellow; Glucose,Urine (UA) Negative (Negative); Ketones,Urine 40 mg/dL (Negative); Leukocyte Esterase,Urine Negative /uL (Negative); PH,Urine 7.0 (5.0-9.0); Protein,Urine >=300 mg/dL (Negative); Specific Gravity,Urine 1.020 (1.000-1.035); Urobilinogen,Urine Normal
[2024-11-27] MEDS: FUROSEMIDE 40 MG/4 ML VIAL IV ONE (17:48)
[2024-11-27] MEDS: ACETAMINOPHEN 325 MG TABLET PO PRN (17:48)
[2024-11-27 20:21] LABS: Creatinine, Spot Urine 135.0 mg/dL (39.0-259.0); Pro:Crea Ratio 1.34 (<0.20); Protein, Spot Urine 181.0 mg/dL
[2024-11-27] MEDS: SENNOSIDES 1 TABLET PO SCH (21:31)
[2024-11-27] MEDS: 0.9 % SODIUM CHLORIDE 10 ML SYRINGE IV SCH (21:45)
[2024-11-27] MEDS: ONDANSETRON 4 MG/2 ML VIAL IV PRN (23:46)
[2024-11-28] MEDS ORDERED: LABETALOL HCL 20 MG/4 ML VIAL IV PRN (00:06)
[2024-11-28 06:34] LABS: ALT/SGPT 17 U/L (<40); AST/SGOT 18 U/L (<40); Albumin 3.4 gm/dL (3.2-5.2); Albumin/Globulin Ratio 1.2 (1.0-2.3); Alkaline Phosphatase 57 U/L (39-117); Anion Gap 13.0 (8.0-16.0); Bilirubin,Direct 0.2 mg/dL (<0.3); Bilirubin,Total 0.4 mg/dL (0.1-1.0); Blood Urea Nitrogen 21 mg/dL (8-23); Calcium 8.8 mg/dL (8.6-10.4); Carbon Dioxide 23 mmol/L (22-30); Chloride 98 mmol/L (96-108); Globulin 2.8 gm/dL (2.2-3.7); Glucose 150 mg/dL (70-105); Phosphorous 3.0 mg/dL (2.5-4.5); Potassium 3.1 mmol/L (3.3-5.1); Sodium 134 mmol/L (133-145); Triglycerides 115 mg/dL (<150); Uric Acid 6.8 mg/dL (2.5-8.0)
[2024-11-28 06:45] LABS: Basophils # (Auto) 0.02 K/mcL (0.00-0.30); Basophils % (Auto) 0.2 % (0.0-2.0); Eosinophils # (Auto) 0 K/mcL (0.00-0.70); Eosinophils % (Auto) 0 % (0.0-7.0); Hematocrit 36.9 % (40.1-51.0); Hemoglobin 12.6 g/dL (13.7-17.5); Lymphocytes # (Auto) 0.63 K/mcL (1.50-4.80); Lymphocytes % (Auto) 7.1 % (15.5-49.0); Mean Corpuscular HGB Conc 34.1 g/dL (31.0-36.0); Monocytes # (Auto) 0.82 K/mcL (0.10-0.90); Monocytes % (Auto) 9.2 % (1.0-12.0); Neutrophils % (Auto) 83.3 % (38.0-78.0); Platelet Count 209 K/mcL (140-440); RBC 3.76 M/mcL (4.63-6.08); WBC 8.9 K/mcL (4.5-11.0)
[2024-11-28] MEDS: ENOXAPARIN 40 MG/0.4 ML SYRINGE SQ SCH (08:15)
[2024-11-28] MEDS: cefTRIAXone 1 GM VIAL IV SCH (09:25)
[2024-11-28] MEDS: AZITHROMYCIN 500 MG in DEXTROSE 5% IN WATER 250 ML IV SCH (10:00)
[2024-11-28] MEDS: POTASSIUM CHLORIDE 20 MEQ TABLET PO ONE (10:00)
[2024-11-28] MEDS: CARVEDILOL 12.5 MG TABLET PO SCH (16:32)
[2024-11-28] MEDS: FUROSEMIDE 20 MG TABLET PO SCH (21:11)
[2024-11-29 06:28] LABS: Basophils # (Auto) 0.04 K/mcL (0.00-0.30); Basophils % (Auto) 0.6 % (0.0-2.0); Eosinophils # (Auto) 0.13 K/mcL (0.00-0.70); Eosinophils % (Auto) 1.8 % (0.0-7.0); Hematocrit 36.5 % (40.1-51.0); Hemoglobin 12.1 g/dL (13.7-17.5); Lymphocytes # (Auto) 0.91 K/mcL (1.50-4.80); Lymphocytes % (Auto) 12.5 % (15.5-49.0); Mean Corpuscular HGB Conc 33.2 g/dL (31.0-36.0); Monocytes # (Auto) 0.98 K/mcL (0.10-0.90); Monocytes % (Auto) 13.5 % (1.0-12.0); Neutrophils % (Auto) 71.3 % (38.0-78.0); Platelet Count 215 K/mcL (140-440); RBC 3.70 M/mcL (4.63-6.08); WBC 7.3 K/mcL (4.5-11.0)
[2024-11-29 07:08] LABS: ALT/SGPT 20 U/L (<40); AST/SGOT 24 U/L (<40); Albumin 3.1 gm/dL (3.2-5.2); Albumin/Globulin Ratio 1.0 (1.0-2.3); Alkaline Phosphatase 49 U/L (39-117); Anion Gap 10.0 (8.0-16.0); Bilirubin,Direct < 0.2 mg/dL (0-0.3); Bilirubin,Total 0.3 mg/dL (0.1-1.0); Blood Urea Nitrogen 30 mg/dL (8-23); Calcium 8.6 mg/dL (8.6-10.4); Carbon Dioxide 25 mmol/L (22-30); Chloride 101 mmol/L (96-108); Globulin 3.0 gm/dL (2.2-3.7); Glucose 117 mg/dL (70-105); Phosphorous 3.2 mg/dL (2.5-4.5); Potassium 3.6 mmol/L (3.3-5.1); Sodium 136 mmol/L (133-145); Triglycerides 150 mg/dL (<150); Uric Acid 7.4 mg/dL (2.5-8.0)
[2024-11-29] MEDS: POTASSIUM CHLORIDE 20 MEQ TABLET PO SCH (08:13)
[2024-11-30 06:10] LABS: Basophils # (Auto) 0.03 K/mcL (0.00-0.30); Basophils % (Auto) 0.4 % (0.0-2.0); Eosinophils # (Auto) 0.25 K/mcL (0.00-0.70); Eosinophils % (Auto) 3.7 % (0.0-7.0); Hematocrit 36.4 % (40.1-51.0); Hemoglobin 12.4 g/dL (13.7-17.5); Lymphocytes # (Auto) 1.05 K/mcL (1.50-4.80); Lymphocytes % (Auto) 15.4 % (15.5-49.0); Mean Corpuscular HGB Conc 34.1 g/dL (31.0-36.0); Monocytes # (Auto) 0.94 K/mcL (0.10-0.90); Monocytes % (Auto) 13.8 % (1.0-12.0); Neutrophils % (Auto) 66.4 % (38.0-78.0); Platelet Count 286 K/mcL (140-440); RBC 3.74 M/mcL (4.63-6.08); WBC 6.8 K/mcL (4.5-11.0)
[2024-11-30 06:22] LABS: ALT/SGPT 58 U/L (<40); AST/SGOT 53 U/L (<40); Albumin 3.2 gm/dL (3.2-5.2); Albumin/Globulin Ratio 1.1 (1.0-2.3); Alkaline Phosphatase 59 U/L (39-117); Anion Gap 12.0 (8.0-16.0); Bilirubin,Direct < 0.2 mg/dL (0-0.3); Bilirubin,Total 0.3 mg/dL (0.1-1.0); Blood Urea Nitrogen 30 mg/dL (8-23); Calcium 9.0 mg/dL (8.6-10.4); Carbon Dioxide 22 mmol/L (22-30); Chloride 101 mmol/L (96-108); Globulin 2.8 gm/dL (2.2-3.7); Glucose 119 mg/dL (70-105); Phosphorous 3.2 mg/dL (2.5-4.5); Potassium 3.7 mmol/L (3.3-5.1); Sodium 135 mmol/L (133-145); Triglycerides 173 mg/dL (<150); Uric Acid 7.3 mg/dL (2.5-8.0)
[2024-12-01 10:12] LABS: ALT/SGPT 57 U/L (<40); AST/SGOT 35 U/L (<40); Albumin 3.3 gm/dL (3.2-5.2); Albumin/Globulin Ratio 1.0 (1.0-2.3); Alkaline Phosphatase 61 U/L (39-117); Anion Gap 12.0 (8.0-16.0); Bilirubin,Direct < 0.2 mg/dL (0-0.3); Bilirubin,Total 0.4 mg/dL (0.1-1.0); Blood Urea Nitrogen 22 mg/dL (8-23); Calcium 9.1 mg/dL (8.6-10.4); Carbon Dioxide 24 mmol/L (22-30); Chloride 102 mmol/L (96-108); Globulin 3.2 gm/dL (2.2-3.7); Glucose 118 mg/dL (70-105); Phosphorous 3.4 mg/dL (2.5-4.5); Potassium 4.0 mmol/L (3.3-5.1); Sodium 138 mmol/L (133-145); Triglycerides 163 mg/dL (<150); Uric Acid 6.7 mg/dL (2.5-8.0)
[2024-12-01 11:04] VITALS: TEMP 97.7; O2SAT 94
== END 2024-12-01 13:41 | DRG 193 ==
LOC: ED 10:17 → MEDSUR 17:24
PROVIDERS: ADMIT Internal Medicine; ATTEND Internal Medicine